=== PATIENT | female | born 1985 | race Caucasian/White ===

== ENCOUNTER 2021-10-02 13:20 | Emergency (ER) | payer OTHER, SELFPAY ==
[2021-10-02 13:30] VITALS: BP 127/74; PULSE 80; RESP 16; TEMP 36.4; O2SAT 94
--- NOTE | 2021-10-02 13:38 | ED.URI ---
HPI - URI/Sore Throat General Chief Complaint: Upper Respiratory Infection Stated Complaint: d/earache/congestion/chills Time Seen by Provider: 10/02/21 13:30 Source: patient and RN notes reviewed History of Present Illness HPI Narrative: Patient is a 36-year-old female who presents the urgent care with complaints of earache, congestion, chills, cough and wheezing. Patient states that started last Friday. States that no one else in the home has been ill. Patient has not had the COVID-vaccine and denies of any recent COVID exposures. Denies of any fever, nausea, vomiting, shortness of breath or chest pain. Patient states she has been using Mucinex, cold and cough, Tylenol and ibuprofen. No other acute complaints. No acute distress noted. Patient aware of the plan of care. Some parts of this dictation were generated by voice recognition software and may contain typographical and/or grammatical inaccuracies. Related Data Allergies Allergy/AdvReac Type Severity Reaction Status Date / Time No Known Allergies Allergy Unverified 02/18/14 11:02 Review of Systems Review of Systems: CONSTITUTIONAL: Reports of chills and sweats EYES: Denies visual changes, redness, or discharge. ENT: Reports of congestion, rhinorrhea, postnasal drainage CARDIOVASCULAR: Denies chest pain, palpitations, or edema. RESPIRATORY: Reports of cough without dyspnea GASTROINTESTINAL: Denies abdominal pain, nausea, vomiting, or diarrhea. GENITOURINARY: Denies dysuria or hematuria. SKIN: Denies rash or itching. MUSCULOSKELETAL: Denies back pain, joint pain, or myalgia. NEUROLOGIC: Denies headache, numbness, or weakness. All other systems reviewed are negative, except as documented in HPI. In PMFSH Comments At the time of my signature, I reviewed and agree with the nursing past medical, surgical, social, and family history. There is no relevant family history pertinent to the patient complaint. Exam Narrative: GENERAL: This is a well-nourished, well-developed patient. appears slightly fatigued HEAD: normocephalic, atraumatic. EYES: PERRL. Sclera clear/white. Vision is grossly intact. EARS: External ears normal, auditory canals clear and without drainage, TMs normal without perforation. Hearing grossly intact. NOSE: External nose normal with no obvious nasal discharge, nares without redness, no rhinorrhea. THROAT: Mucous membranes moist, posterior pharynx clear. Moderate postnasal drainage NECK: Neck supple CARDIOVASCULAR: Regular rate and rhythm without murmurs, gallops, or rubs. RESPIRATORY: Expiratory wheezes throughout GASTROINTESTINAL: Abdomen soft, non-tender, nondistended. Bowel sounds are active. No hepato-splenomegaly, or palpable masses. No guarding. SKIN: warm, intact with no suspicious lesions or rash, good texture and turgor. NEURO: awake, alert, and oriented to person, place and time. There were no obvious focal neurologic abnormalities. EXTREMITIES: No clubbing, cyanosis, or edema. Course Course Level of Care: Express Care Visit Vital Signs Vital signs: Vital Signs Temperature 97.6 F 10/02/21 13:30 Pulse Rate 80 10/02/21 13:30 Respiratory Rate 16 10/02/21 13:30 Blood Pressure 127/74 10/02/21 13:30 Pulse Oximetry 94 10/02/21 13:30 Temperature 97.6 F 10/02/21 13:30 Pulse Rate 80 10/02/21 13:30 Respiratory Rate 16 10/02/21 13:30 Blood Pressure 127/74 10/02/21 13:30 Pulse Oximetry 94 10/02/21 13:30 Reviewed MDM - URI/Sore Throat MDM Narrative Medical decision making narrative: Advised the patient to complete the steroid regimen as prescribed. Complete the antibiotic regimen as prescribed. Be sure to eat and drink with the medication. Use the inhaler as needed for wheezes or shortness of breath. If you develop any increase in symptoms associated with chest pain/tightness/shortness of breath or high fevers?go to the emergency room. Follow-up with your PCP within 2 to 5 days or for worsening symptoms or
== END 2021-10-02 14:05 | disposition home or self-care (01) ==
PROVIDERS: Emergency Provider Nurse Practitioner Family
DX: J40 Bronchitis, not specified as acute or chronic (principal)
CPT/HCPCS: 99203; G0463